=== PATIENT | male | born 1980 ===

== ENCOUNTER 2018-06-10 11:20 | Emergency (ER) | payer BC ==
[2018-06-10] MEDS ORDERED: Tetan/Diph/Pertus SYR(Tdap)* 0.5 ML SYR(BOOSTRIX) use SYR IM ONE (12:48)
[2018-06-10] MEDS ORDERED: Acetaminophen TAB* 325 MG PO ONE (12:50)
--- NOTE | 2018-06-10 13:01 | UC ---
Minor Trauma HPI - HPI Summary HPI Summary: PT WAS 3-4 FEET UP A LADDER THIS MORNING WHEN HE LOST HIS BALANCE AND FELL BACKWARDS LANDING FIRST ON HIS TAILBONE THEN STRIKING THE BACK OF HIS HEAD ON A HARDWOOD FLOOR AND SUSTAINING A LACERATION. UNKNOWN IF ANY LOC THE EVENT WAS UNWITNESSED. INITIALLY PATIENT HAD DIZZINESS, NAUSEA AND HEADACHE. NOW COMPLAINS ONLY OF HEADACHE AND THAT HIS "EYES FEEL DIFFERENT". UNKNOWN DATE OF LAST TETANUS. 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 - Onset/Duration: Sudden Onset, Lasting Hours, Still Present Onset Of Pain: Immediate Severity Initially: Moderate Severity Currently: Mild Pain Intensity: 2 Pain Scale Used: 0-10 Numeric Mechanism Of Injury: Fall From Height Of: - 3-4 FEET Associated Signs And Symptoms: Negative: Ecchymosis, Swelling - Allergies/Home Medications Allergies/Adverse Reactions: Allergies Allergy/AdvReac Type Severity Reaction Status Date / Time No Known Allergies Allergy Verified 06/10/18 11:33 PMH/Surg Hx/FS Hx/Imm Hx - Additional Past Medical History Additional PMH: ALLERGIES - Surgical History Surgical History: None - Family History Known Family History: Positive: Hypertension - Social History Alcohol Use: Rare Substance Use Type: None Smoking Status (MU): Never Smoked Tobacco Review of Systems Constitutional: Negative Skin: Other - LACERATION POSTERIOR SCALP Respiratory: Negative Cardiovascular: Negative Gastrointestinal: Negative Musculoskeletal: Arthralgia Neurological: Headache All Other Systems Reviewed And Are Negative: Yes Physical Exam Triage Information Reviewed: Yes Appearance: Well-Appearing, No Pain Distress, Well-Nourished Vital Signs: Initial Vital Signs Temp 97.7 F 06/10/18 11:27 Pulse 77 06/10/18 11:27 Resp 18 06/10/18 11:27 BP 117/77 06/10/18 11:27 Pulse Ox 99 06/10/18 11:27 Vital Signs Reviewed: Yes Eyes: Positive: Conjunctiva Clear, Other: - PERRL, EOMI ENT: Positive: Hearing grossly normal, Pharynx normal, TMs normal Neck: Positive: Supple Respiratory: Positive: No respiratory distress, No accessory muscle use Cardiovascular: Positive: Pulses Normal Abdomen Description: Positive: Soft Musculoskeletal: Positive: ROM Intact, No Edema, Other: - MILDLY TENDER MUSCLES RIGHT LOW BACK Neurological: Positive: Alert, Other: - CN II-XII GROSSLY INTACT BILATERALLY. RAPID ALTERNATING MOVEMENTS INTACT. NEG PRONATOR DRIFT. NEG ROMBERG. 5/5 STRENGTH. HEEL TO XIAO INTACT BILATERALLY. HEEL TO TOE INTACT. FINGER TO NOSE INTACT. Psychological: Positive: Age Appropriate Behavior Skin: Positive: Other - 2CM LACERATION POSTERIOR SCALP Procedures - Laceration/Wound Repair 1 Location: head Description: Linear Anesthesia: Local, 1.0% Length, Depth and Shape: 2CM LONG, 4MM DEEP, LINEAR Betadine Prep?: No Laceration/Wound Explored: clean Closure: Single Layer Suture Type: Prolene - 4-0 Number of Sutures: 3 Layer Closure?: No Sterile Dressing Applied?: Yes Diagnostics - Radiology LUMBAR/SACRAL/COCCYX XRAYS Xray Interpretation: No Acute Changes Radiology Interpretation Completed By: Radiologist Minor Trauma Course/Dx - Course Course Of Treatment: BY THE END OF THE ENCOUNTER PT REPORTS HE IS FEELING BETTER - EYES ARE FEELING MORE NORMAL. XRAYS NEG. TDAP BOOSTED. LACERATION REPAIRED. NOT AMENABLE TO DG SO #3 SUTURES PLACED. - Differential Dx/Diagnosis Provider Diagnoses: 1. LACERATION REPAIR POSTERIOR SCALP. 2. CONTUSION LOW BACK /COCCYX. 3. TDAP BOOSTER Discharge - Sign-Out/Discharge Documenting (check all that apply): Patient Departure All imaging exams completed and their final reports reviewed: Yes - Discharge Plan Condition: Stable Disposition: HOME Patient Education Materials: Laceration (ED), Concussion (ED), Acute Low Back Pain (ED), Contusion in Adults (ED) Referrals: Emma Anglin MD [Primary Care Provider] - If Needed Additional Instructions: APPLY THIN LAYER ANTIBIOTIC OINTMENT FOR FIRST 3-4 DAYS. SEEK FOLLOW-UP IF YOU DEVELOP SPREADING REDNESS OF THE SKIN, PURULENT DRAINAGE, FEVER, INCREASED PAIN OR ANY OTHER CONCERNING SYMPTOMS. RETURN TO HAVE YOUR SUTURES REMOVED IN 10 DAYS OKAY FOR TYLENOL TONIGHT FOR HEADACHE. STARTING TOMORROW AFTERNOON CAN GIVE IBUPROFEN IF NEEDED. LIMIT SCREEN TIME AND AVOID ACTIVITIES THAT COULD RESULT IN ADDITIONAL HEAD INJURY. NO SPORTS FOR AT LEAST A WEEK. FOLLOW-UP WITH PCP IF SYMPTOMS ARE PERSISTENT AFTER 1 WEEK. GO TO THE ED WITHOUT FAIL IF YOU DEVELOP UNEQUAL PUPILS, VISUAL DISTURBANCE, GAIT INSTABILITY, SPEECH DIFFICULTY, NAUSEA/VOMITING, WORSENING HEADACHE, DIZZINESS, CONFUSION, WEAKNESS OR ANY OTHER CONCERNING SYMPTOMS. [facility] [phone] (M-F 8AM-4PM) [email or web address] (FOR HELP, INFO OR TO CONNECT WITH A SUPPORT GROUP) TETANUS IMMUNIZATION GIVEN (TDAP): You have been given an immunization against tetanus. Please record this in your records. In general, a booster is needed only once every 10 years. The tetanus shot protects against tetanus or "lockjaw," which is a complication of certain wound infections (the tetanus shot cannot protect against the actual infection). The immunization site may become warm and red due to local reaction. If this occurs, apply warm compresses and take aspirin or ibuprofen to reduce inflammation and discomfort. Return for evaluation if the reaction becomes severe. XRAYS OF LOW BACK/COCCYX TODAY NEGATIVE FOR FRACTURE OR DISLOCATION. YOUR SYMPTOMS SHOULD IMPROVE SIGNIFICANTLY OVER THE NEXT 1-2 WEEKS. IF YOU DO NOT IMPROVE EXPECTED FOLLOW-UP WITH YOUR PCP. YOU MAY BENEFIT FROM REPEAT IMAGING AT THAT TIME. OTC MEDS NEEDED FOR DISCOMFORT. BE SURE TO GO THROUGH SLOW RANGE OF MOTION AND STRETCHING EXERCISES DAILY YOU ARE ABLE TO PREVENT STIFFENING UP AND MAKING THE DISCOMFORT WORSE. - Billing Disposition and Condition Condition: STABLE Disposition: Home
--- NOTE | 2018-06-10 13:47 | RAD ---
INDICATION: Low back and sacral pain after a fall from a ladder COMPARISON: None. TECHNIQUE: 3 views of the lumbar spine and 3 views of the sacrum were obtained. FINDINGS: Lumbar spine: The vertebra are in normal alignment. No fracture is seen. Disc spaces appear maintained. Sacrum: The bones of the sacrum and coccyx are cortically intact and the AP and lateral projections. The sacroiliac joints are appropriately aligned. The visualized pelvic bones are intact. IMPRESSION: No evidence of acute fracture or other traumatic injury involving the lumbar spine or sacrum.
[2018-06-10] MEDS ORDERED: Lidocaine 1%* 5 ML VIAL INJ ONE (13:54)
[2018-06-10 14:01] VITALS: BP 120/65
== END 2018-06-10 14:53 | disposition home or self-care (01) ==
LOC: UCEAST 11:20
DX: S30.0XXA Contusion of lower back and pelvis, initial encounter (principal); S01.01XA Laceration without foreign body of scalp, initial encounter; W11.XXXA Fall on and from ladder, initial encounter; Y93.89 Activity, other specified; Y92.9 Unspecified place or not applicable; Z23 Encounter for immunization
CPT/HCPCS: 12001; 12031; 72100; 72220; 90471; 90715; 99202; A9270-GY; G0463